=== PATIENT | female | born 1970 | race Caucasian/White ===

== ENCOUNTER 2017-01-02 20:15 | Emergency (ER) | payer OTHER ==
[~2017-01-02 20:15] MED LIST: ACET500T3 PO; DIPH1LIQ PO; DIPH25CA PO; EXCETAB40 PO; FLUT5SPR; GABA300C5 PO; HYDR50CA PO; ONETAB22 PO; PRIL20CA9 PO; RISP0.252 PO
[2017-01-02 20:17] VITALS: BP 116/75; PULSE 83; RESP 15; TEMP 98; O2SAT 98
--- NOTE | 2017-01-02 20:56 | PD ---
Physical Exam Time Seen by Provider: 20:54 Narrative 46 y/o female w/ hx of fibromyalgia here with R arm pain for 3 weeks. Specifically R elbow pain. Denies injury, feels that this is related to her fibromyalgia. vital signs reviewed. Seen at triage desk. Awaiting bed placement. Data Data Last Documented VS Vital Signs Date Time Temp Pulse Resp B/P Pulse Ox O2 Delivery O2 Flow Rate FiO2 01/02/17 20:17 98.0 83 15 116/75 98 Room Air [facility] Medical Record Reviewed: Yes Supervised Visit with SANTIAGO: Julio Dhaliwal January 02, 2017 20:56
[2017-01-02] MEDS ORDERED: MEDR4PAK PO (21:04)
--- NOTE | 2017-01-02 21:05 | PD ---
HPI Chief Complaint: Musculoskeletal Complaint Time Seen by Provider: 21:03 Travel History International Travel<30 days: No Contact w/Intl Traveler<30days: No Traveled to known affect area: No History of Present Illness HPI 46-year-old female with a history of fibromyalgia presents to the emergency department for evaluation of left forearm/elbow pain worsening over the last 2 weeks. Patient has a 6 out of 10, constant, exacerbated with supination of the right forearm. Patient recalls no injury. Denies and limitations in range of motion. Denies any recent illnesses, fever, chills. No alterations in sensation in the distal affected extremity. Patient has no other symptoms to report. PFSH Past Medical History Anxiety: Yes Depression: Yes Diminished Hearing: No Genitourinary: Yes (HX OF STD'S & endometriosis) Psychiatric: Yes (manic depression) Immunizations Current: Yes PNEUMOCCOCAL Vaccine (Year): 2008 : 2 Para: 1 Miscarriage: 1 Tubal Ligation: Yes Past Surgical History Gynecologic Surgery: Yes (tubal ligation ) Other Surgery: Yes (LUMP REMOVED FROM R BREAST-BENIGN) Social History Alcohol Use: No Tobacco Use: Yes (1 ppd) Substance Use: Yes (denies, hx crack) Allergies-Medications (Allergen,Severity, Reaction): Coded Allergies: Doxycycline (Verified Allergy, Severe, RASH, 01/02/17) Amoxicillin (Verified Allergy, Mild, ITCH, 01/02/17) Penicillin (Verified Allergy, Unknown, 01/02/17) Reported Meds & Prescriptions Reported Meds & Active Scripts Active Medrol Dosepak (Methylprednisolone) 4 Mg Dspk 4 Mg PO DIRECTED Per Pharmacist direction Prilosec (Omeprazole) 20 Mg Cap 40 Mg PO DAILY Reported Theraflu Expressmax (Mrzsvsspvvcrixm-Yxhnilbdrtnmb-Fzrbwqjifvumn) 12.5-5-325 mg/ 15 ml Liqd 30 Ml PO Q4H PRN One Daily-Minerals (Multiple Vitamins W/ Minerals) 1 Tab 1 Tab PO DAILY Acetaminophen 500 Mg Tab 500 Mg PO DIRECTED PRN Excedrin Tension Headache (Acetaminophen-Caffeine) 500-65 mg Tab 1 Tab PO Q6HR PRN Diphenhydramine (Diphenhydramine HCl) 25 Mg Cap 25 Mg PO HS PRN Gnp Fluticasone Propionat (Fluticasone Propionate (Nasal)) 50 Mcg/Act Spr Risperidone 0.25 Mg Tab 0.25 Mg PO Q12HR Hydroxyzine Pamoate 50 Mg Cap 50 Mg PO HS Gabapentin 300 Mg Cap 300 Mg PO BID Review of Systems Except as stated in HPI: all other systems reviewed are Neg Physical Exam Narrative GENERAL: Well-nourished, well-developed female patient in no acute distress SKIN: Focused skin assessment warm/dry. HEAD: Normocephalic. EYES: No scleral icterus. No injection or drainage. NECK: Supple, trachea midline. No JVD or lymphadenopathy. CARDIOVASCULAR: Regular rate and rhythm without murmurs, gallops, or rubs. RESPIRATORY: Breath sounds equal bilaterally. No accessory muscle use. MUSCULOSKELETAL: No cyanosis, or edema. No erythema or edema. Patient has full flexion and extension of the right elbow. There is tenderness elicited palpation over the posterior lateral forearm distal to the elbow. Distal pulses are palpable. Cap refill is within normal limits. BACK: Nontender without obvious deformity. No CVA tenderness. Data Data Last Documented VS Vital Signs Date Time Temp Pulse Resp B/P Pulse Ox O2 Delivery O2 Flow Rate FiO2 01/02/17 20:17 98.0 83 15 116/75 98 Room Air Orders ^ [place] Bandage (01/02/17 21:07) Ketorolac Inj (Toradol Inj) (01/02/17 21:15) MDM Medical Decision Making Medical Screen Exam Complete: Yes Emergency Medical Condition: Yes Medical Record Reviewed: Yes Differential Diagnosis Tendinitis versus bursitis versus osteoarthritis Narrative Course 46 year-old female presents to the emergency department for evaluation of right elbow pain. Patient has full range of motion. There is no erythema or edema. This is likely a tendinitis versus joint pain. Patient states she does have a remote history of crack cocaine use 8 years ago but adamantly denies any IV drug abuse. She is treated with anti-inflammatory medication and advised to follow-up with primary care provider. She agrees to return immediately with any acute worsening of symptoms. Diagnosis Primary Impression: Right elbow pain Referrals: Primary Care Physician Patient Instructions: Elbow Bursitis Exercises (GEN), General Instructions Additional Instructions: Ice and elevate to reduce pain Follow-up with the primary care provider Avoid repetitive movement to reduce pain Return immediately with any acute worsening of symptoms Med/Other Pt SpecificInfo: Prescription(s) given Scripts Methylprednisolone Dosepak (Medrol Dosepak)4 Mg Dspk4 Mg PO DIRECTED #1 DSPK Ref 0 Per Pharmacist direction Prov:Meche Buchanan 01/02/17 Disposition: 01 DISCHARGE HOME Condition: Stable Meche Buchanan January 02, 2017 21:04
[2017-01-02] MEDS ORDERED: KETOROLAC TROMETHAMINE 60 MG/2 ML (IM) VIAL IM ONE (21:15)
[2017-01-16] MEDS ORDERED: AZIT250T3 PO (08:50)
[2017-01-16] MEDS ORDERED: BENZ100 PO (08:50)
[2017-01-31] MEDS ORDERED: OMEP20TA PO (08:37)
[2017-01-31] MEDS ORDERED: GABA100C4 PO (08:37)
[2017-01-31] MEDS ORDERED: FLUT50SP EACH NARE (08:37)
[2017-01-31] MEDS ORDERED: EXCETAB30 PO (08:37)
[2017-01-31] MEDS ORDERED: ACET500T13 PO (08:37)
== END 2017-01-02 21:48 | disposition home or self-care (01) ==
LOC: NEPK 20:15
DX: M25.521 Pain in right elbow (principal); M79.7 Fibromyalgia
CPT/HCPCS: 96372; 99283; J1885

== ENCOUNTER 2017-03-27 07:05 | Emergency (ER) | payer OTHER ==
[~2017-03-27] VITALS: Ht 160 cm; Wt 58.0 kg
[~2017-03-27 07:05] MED LIST changes: +ACET500T13 PO; -ACET500T3 PO; +BENZ100 PO; -DIPH1LIQ PO; +EXCETAB30 PO; -EXCETAB40 PO; +FLUT50SP EACH NARE; -FLUT5SPR; +GABA100C4 PO; -GABA300C5 PO; +OMEP20TA PO; -PRIL20CA9 PO
[2017-03-27 07:08] VITALS: BP 130/80; PULSE 68; RESP 20; TEMP 97.7; O2SAT 20
[2017-03-27] MEDS ORDERED: PRED20 PO (08:13)
--- NOTE | 2017-03-27 08:13 | PD ---
HPI Chief Complaint: Skin Problem Time Seen by Provider: 07:40 Travel History International Travel<30 days: No Contact w/Intl Traveler<30days: No Traveled to known affect area: No History of Present Illness HPI 38-year-old female since emergency department for evaluation of rash to bilateral upper extremities extending from the hands up into the elbows. 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 She believes this may have caused the rash. The rash is pruritic. She denies fever or chills. PFSH Past Medical History Anxiety: Yes Depression: Yes Diminished Hearing: No Genitourinary: Yes (HX OF STD'S & endometriosis) Psychiatric: Yes (manic depression) Immunizations Current: Yes PNEUMOCCOCAL Vaccine (Year): 2008 ?: Not : 2 Para: 1 Miscarriage: 1 Tubal Ligation: Yes Past Surgical History Gynecologic Surgery: Yes (tubal ligation ) Other Surgery: Yes (LUMP REMOVED FROM R BREAST-BENIGN) Social History Alcohol Use: No Tobacco Use: Yes (1 ppd) Substance Use: Yes (denies, hx crack) Allergies-Medications (Allergen,Severity, Reaction): Coded Allergies: Doxycycline (Verified Allergy, Severe, RASH, 03/27/17) Amoxicillin (Verified Allergy, Mild, ITCH, 03/27/17) Penicillin (Verified Allergy, Unknown, 03/27/17) Reported Meds & Prescriptions Reported Meds & Active Scripts Active Prednisone 20 Mg Tab 40 Mg PO DAILY Take 40 mg (2 tablets) daily for 5 days Omeprazole 20 Mg Tab 20 Mg PO DAILY Tessalon Perles (Benzonatate) 100 Mg Cap 200 Mg PO TID PRN Reported Excedrin Migraine Caplet (Aspirin/Acetaminophen/Caffeine) 1 Each Tablet 650 Mg PO DAILY Fluticasone Nasal [place] 50 Mcg/Act Naspr 50 Mcg EACH NARE BID 50 mcg/spray APAP Extra Strength (Acetaminophen) 500 Mg Tab 500 Mg PO Q4-6H PRN Gabapentin 100 Mg Cap 300 Mg PO BID One Daily-Minerals (Multiple Vitamins W/ Minerals) 1 Tab 1 Tab PO DAILY Diphenhydramine (Diphenhydramine HCl) 25 Mg Cap 25 Mg PO HS PRN Risperidone 0.25 Mg Tab 0.25 Mg PO Q12HR Hydroxyzine Pamoate 50 Mg Cap 50 Mg PO HS Review of Systems Except as stated in HPI: all other systems reviewed are Neg General / Constitutional: No: Fever Physical Exam Narrative GENERAL: Well-nourished, well-developed patient. SKIN: Focused skin assessment warm/dry. Diffuse pruritic papules on erythematous base extending from the hands of the elbows. There is no induration, fluctuance, lymphangitis. HEAD: Normocephalic. EYES: No scleral icterus. No injection or drainage. NECK: Supple, trachea midline. No JVD or lymphadenopathy. CARDIOVASCULAR: Regular rate and rhythm without murmurs, gallops, or rubs. RESPIRATORY: Breath sounds equal bilaterally. No accessory muscle use. GASTROINTESTINAL: Abdomen soft, non-tender, nondistended. MUSCULOSKELETAL: No cyanosis, or edema. Bilateral upper extremities: Diffuse pruritic papules on erythematous base extending from the hands of the elbows. There is no induration, fluctuance, lymphangitis. BACK: Nontender without obvious deformity. No CVA tenderness. Data Data Last Documented VS Vital Signs Date Time Temp Pulse Resp B/P Pulse Ox O2 Delivery O2 Flow Rate FiO2 03/27/17 07:08 97.7 68 20 130/80 20 Room Air MDM Medical Decision Making Medical Screen Exam Complete: Yes Emergency Medical Condition: Yes Differential Diagnosis Irritant Contact dermatitis, allergic contact dermatitis, other Narrative Course 38-year-old female since emergency department for evaluation of rash to bilateral upper extremities extending from the hands up into the elbows. 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 She believes this may have caused the rash. The rash is pruritic. She denies fever or chills. Physical exam is consistent with contact dermatitis. Patient was instructed to avoid having contact with the bleach water. She will be given a prescription for prednisone and instructed take [id number] Benadryl. She agrees to plan. Diagnosis Primary Impression: Contact dermatitis Qualified Code: L25.9 - Contact dermatitis, unspecified contact dermatitis type, unspecified trigger Referrals: [facility] Additional Instructions: Avoid contact with the bleach. Take [id number] Benadryl 25 mg every 6-8 hours as needed for itching. Take the steroids as prescribed. Return if. Worsening symptoms. Scripts Prednisone 20 Mg Tab40 Mg PO DAILY #10 TAB Take 40 mg (2 tablets) daily for 5 days Prov:Alison Caba 03/27/17 Disposition: 01 DISCHARGE HOME Condition: Stable Alison Caba Mar 27, 2017 08:13
== END 2017-03-27 08:40 | disposition home or self-care (01) ==
LOC: NEPK 07:05
DX: L25.9 Unspecified contact dermatitis, unspecified cause (principal); F41.9 Anxiety disorder, unspecified; F32.9 Major depressive disorder, single episode, unspecified; F17.200 Nicotine dependence, unspecified, uncomplicated; Z88.0 Allergy status to penicillin; Z88.8 Allergy status to other drugs, medicaments and biological substances; Z79.899 Other long term (current) drug therapy
CPT/HCPCS: 99283

== ENCOUNTER 2017-04-02 10:48 | Emergency (ER) | payer OTHER ==
[~2017-04-02] VITALS: Ht 160 cm; Wt 57.5 kg
[~2017-04-02 10:48] MED LIST changes: +PRED20 PO
[2017-04-02 10:50] VITALS: BP 125/92; PULSE 80; RESP 16; TEMP 98.3; O2SAT 98
[2017-04-02] MEDS ORDERED: predniSONE 20 MG TAB PO ONE (11:30)
[2017-04-02] MEDS ORDERED: VIST25CA PO (11:32)
[2017-04-02] MEDS ORDERED: PRED20 PO (11:32)
[2017-04-02] MEDS ORDERED: TRIAM.1%T TOPICAL (11:32)
--- NOTE | 2017-04-02 11:37 | PD ---
HPI Chief Complaint: Skin Problem Time Seen by Provider: 11:15 Travel History International Travel<30 days: No Contact w/Intl Traveler<30days: No Traveled to known affect area: No History of Present Illness HPI 26-year-old female presents the emergency department with ongoing bilateral rash, pruritus, to both forearms and hands for the past 2 weeks. Patient was exposed to a new detergent at her work which she feels started the problem. She was seen and treated with prednisone 20 mg twice a day 5 days she states gave minimal improvement. He states the itching is driving her crazy. She denies fever, chills, or other symptoms. She is allergic to amoxicillin, doxycycline, and penicillin. PFSH Past Medical History Anxiety: Yes Depression: Yes Diminished Hearing: No Genitourinary: Yes (HX OF STD'S & endometriosis) Psychiatric: Yes (manic depression) Immunizations Current: Yes PNEUMOCCOCAL Vaccine (Year): 2008 : 2 Para: 1 Miscarriage: 1 Tubal Ligation: Yes Past Surgical History Gynecologic Surgery: Yes (tubal ligation ) Other Surgery: Yes (LUMP REMOVED FROM R BREAST-BENIGN) Social History Alcohol Use: No Tobacco Use: Yes (1 ppd) Substance Use: Yes (denies, hx crack) Allergies-Medications (Allergen,Severity, Reaction): Coded Allergies: Doxycycline (Verified Allergy, Severe, RASH, 04/02/17) Amoxicillin (Verified Allergy, Mild, ITCH, 04/02/17) Penicillin (Verified Allergy, Unknown, 04/02/17) Reported Meds & Prescriptions Reported Meds & Active Scripts Active Vistaril (Hydroxyzine Pamoate) 25 Mg Cap 25 Mg PO Q6H PRN Prednisone 20 Mg Tab 20 Mg PO BID Triamcinolone Topical (Triamcinolone Acetonide) 0.1 % Oint 1 Applic TOPICAL QID Omeprazole 20 Mg Tab 20 Mg PO DAILY Tessalon Perles (Benzonatate) 100 Mg Cap 200 Mg PO TID PRN Reported Excedrin Migraine Caplet (Aspirin/Acetaminophen/Caffeine) 1 Each Tablet 650 Mg PO DAILY Fluticasone Nasal [place] 50 Mcg/Act Naspr 50 Mcg EACH NARE BID 50 mcg/spray APAP Extra Strength (Acetaminophen) 500 Mg Tab 500 Mg PO Q4-6H PRN Gabapentin 100 Mg Cap 300 Mg PO BID One Daily-Minerals (Multiple Vitamins W/ Minerals) 1 Tab 1 Tab PO DAILY Diphenhydramine (Diphenhydramine HCl) 25 Mg Cap 25 Mg PO HS PRN Risperidone 0.25 Mg Tab 0.25 Mg PO Q12HR Hydroxyzine Pamoate 50 Mg Cap 50 Mg PO HS Review of Systems General / Constitutional: No: Fever Eyes: No: Visual changes HENT: No: Headaches Cardiovascular: No: Chest Pain or Discomfort Respiratory: No: Shortness of Breath Gastrointestinal: No: Abdominal Pain Genitourinary: No: Dysuria Musculoskeletal: No: Pain Skin: Positive Rash, Positive Itching, Positive Dryness Neurologic: No: Weakness Psychiatric: No: Depression Endocrine: No: Polydipsia Hematologic/Lymphatic: No: Easy Bruising Physical Exam Narrative GENERAL: Patient is in mild to moderate distress. SKIN: Warm and dry. Normal color. Normal turgor. Patient is a dry, erythematous, sandpaperlike raised rash to both forearms and hands consistent with contact dermatitis/eczema. HEAD: Atraumatic. Normocephalic. EYES: Pupils equal and round. No scleral icterus. No injection or drainage. ENT: No nasal bleeding or discharge. Mucous membranes pink and moist. Pharynx is clear. Airway is patent. NECK: Trachea midline. Supple nontender. CARDIOVASCULAR: Regular rate and rhythm. RESPIRATORY: No accessory muscle use. Clear to auscultation. Breath sounds equal bilaterally. MUSCULOSKELETAL: Extremities without clubbing, cyanosis, or edema. No obvious deformities. NEUROLOGICAL: Awake and alert. No obvious cranial nerve deficits. Motor grossly within normal limits. Five out of 5 muscle strength in the arms and legs. Normal speech. PSYCHIATRIC: Appropriate mood and affect; insight and judgment normal. Data Data Last Documented VS Vital Signs Date Time Temp Pulse Resp B/P Pulse Ox O2 Delivery O2 Flow Rate FiO2 04/02/17 10:50 98.3 80 16 125/92 98 Room Air Orders Hydroxyzine Pamoate (Vistaril) (04/02/17 11:30) Prednisone (Deltasone) (04/02/17 11:30) [facility] Medical Decision Making Medical Screen Exam Complete: Yes Emergency Medical Condition: Yes Medical Record Reviewed: Yes Differential Diagnosis Pruritus. Contact dermatitis. Eczema. Narrative Course Patient is given Vistaril 50 mg by mouth 1. Patient will be treated with triamcinolone 1% ointment to be applied to both forearms and hands 4 times a day for the next 7 days. She is dispensed 30 g with 1 refill. Patient is also put on prednisone 20 mg is twice a day 7 days. Patient is also given a prescription for Vistaril 25 mg every 6 hours when necessary itching #60. Patient is to use petroleum jelly over the triamcinolone ointment. Patient is to avoid over washing the arms as this will aggravate it. Patient follow with primary care physician as needed. Diagnosis Primary Impression: Contact dermatitis Qualified Code: L24.0 - Irritant contact dermatitis due to detergent Referrals: [facility] Patient Instructions: Contact Dermatitis (ED), General Instructions Additional Instructions: Patient is given Vistaril 50 mg by mouth 1. Patient will be treated with triamcinolone 1% ointment to be applied to both forearms and hands 4 times a day for the next 7 days. She is dispensed 30 g with 1 refill. Patient is also put on prednisone 20 mg is twice a day 7 days. Patient is also given a prescription for Vistaril 25 mg every 6 hours when necessary itching #60. Patient is to use petroleum jelly over the triamcinolone ointment. Patient is to avoid over washing the arms as this will aggravate it. Patient follow with primary care physician as needed. Med/Other Pt SpecificInfo: Prescription(s) given Scripts Hydroxyzine Pamoate (Vistaril)25 Mg Cap25 Mg PO Q6H PRN (ITCHING) #28 CAP Ref 0 Prov:Dayna Garcia MD 04/02/17 Prednisone 20 Mg Tab20 Mg PO BID #14 TAB Prov:Dayna Garcia MD 04/02/17 Triamcinolone Topical 0.1 % Oint1 Applic TOPICAL QID #30 GM Ref 1 Prov:Dayna Garcia MD 04/02/17 Disposition: 01 DISCHARGE HOME Condition: Stable Trevor Mccain Apr 02, 2017 11:37
== END 2017-04-02 13:02 | disposition home or self-care (01) ==
LOC: NEPK 10:48
DX: L24.0 Irritant contact dermatitis due to detergents (principal)
CPT/HCPCS: 99284; J7512

== ENCOUNTER 2017-04-17 07:49 | Emergency (ER) | payer SELFPAY ==
[~2017-04-17] VITALS: Ht 160 cm; Wt 60.0 kg
[~2017-04-17 07:49] MED LIST changes: +TRIAM.1%T TOPICAL; +VIST25CA PO
[2017-04-17 07:50] VITALS: BP 131/88; PULSE 77; RESP 16; TEMP 98.4; O2SAT 98
--- NOTE | 2017-04-17 09:03 | PD ---
HPI Chief Complaint: Child Adolescent Care Problem/Complaint Time Seen by Provider: 08:54 Travel History International Travel<30 days: No Contact w/Intl Traveler<30days: No Traveled to known affect area: No History of Present Illness HPI 46-year-old female with history of no significant past medical issues, presents to the ER today because of a right labia majora lesion that she has noticed over the last few days. She states that she had a new sexual partner a few weeks ago. She states that she has been feeling tired recently and has noticed a abnormal vaginal discharge, has had some tingling on the top of her tongue. She denies any fevers, vomiting, abdominal pain, or other symptoms. Modifying Factors: None Associated Signs & Symptoms: Labia majora lesion, discharge, feeling more tired than usual Risk Factors: None PFSH Past Medical History Anxiety: Yes Depression: Yes Diminished Hearing: No Genitourinary: Yes (HX OF STD'S & endometriosis) Psychiatric: Yes (manic depression) Immunizations Current: Yes PNEUMOCCOCAL Vaccine (Year): 2008 ?: Not LMP: MENOPAUSAL : 2 Para: 1 Miscarriage: 1 Tubal Ligation: Yes Past Surgical History Gynecologic Surgery: Yes (tubal ligation ) Other Surgery: Yes (LUMP REMOVED FROM R BREAST-BENIGN) Social History Alcohol Use: No Tobacco Use: Yes (1 09/03 ppd) Substance Use: No (denies, hx crack--PT STATES CLEAN X 6 YRS) Allergies-Medications (Allergen,Severity, Reaction): Coded Allergies: doxycycline (Unverified Allergy, Severe, RASH, 04/17/17) amoxicillin (Unverified Allergy, Mild, ITCH, 04/17/17) penicillin G (Unverified Allergy, Unknown, 04/17/17) Reported Meds & Prescriptions Reported Meds & Active Scripts Active Vistaril (Hydroxyzine Pamoate) 25 Mg Cap 25 Mg PO Q6H PRN Prednisone 20 Mg Tab 20 Mg PO BID Triamcinolone Topical (Triamcinolone Acetonide) 0.1 % Oint 1 Applic TOPICAL QID Omeprazole 20 Mg Tab 20 Mg PO DAILY Reported Excedrin Migraine Caplet (Aspirin/Acetaminophen/Caffeine) 1 Each Tablet 650 Mg PO DAILY Fluticasone Nasal [place] 50 Mcg/Act Naspr 50 Mcg EACH NARE BID 50 mcg/spray APAP Extra Strength (Acetaminophen) 500 Mg Tab 500 Mg PO Q4-6H PRN Gabapentin 100 Mg Cap 300 Mg PO BID One Daily-Minerals (Multiple Vitamins W/ Minerals) 1 Tab 1 Tab PO DAILY Diphenhydramine (Diphenhydramine HCl) 25 Mg Cap 25 Mg PO HS PRN Risperidone 0.25 Mg Tab 0.25 Mg PO Q12HR Hydroxyzine Pamoate 50 Mg Cap 50 Mg PO HS Review of Systems Except as stated in HPI: all other systems reviewed are Neg Physical Exam Narrative GENERAL: Well-developed middle age white female patient currently in mild distress. Awake and oriented 3. SKIN: Focused skin assessment warm/dry. HEAD: Atraumatic. Normocephalic. EYES: Pupils equal and round. No scleral icterus. No injection or drainage. ENT: Mucosa pink and moist. No erythema or exudates. No uvular edema. No uvular , palatal, or tonsillar deviation. Airway patent. NECK: Trachea midline. No JVD. CARDIOVASCULAR: Regular rate and rhythm. No murmur appreciated. RESPIRATORY: No accessory muscle use. Clear to auscultation. Breath sounds equal bilaterally. GASTROINTESTINAL: Abdomen soft, non-tender, nondistended. Hepatic and splenic margins not palpable. GENITOURINARY: Normal external genitalia with a small lesion on the right labia which appears to be a clean-based ulcer with no surrounding drainage or erythema. Vaginal vault without blood or drainage. Cervical os was closed with small amount a whitish drainage. No cervical motion tenderness. Uterus nontender and nonenlarged. Bilateral adnexa nontender without masses. MUSCULOSKELETAL: No obvious deformities. No clubbing. No cyanosis. No edema. NEUROLOGICAL: Awake and alert. No obvious cranial nerve deficits. Motor grossly within normal limits. Normal speech. PSYCHIATRIC: Appropriate mood and affect; insight and judgment normal. Data Data Last Documented VS Vital Signs Date Time Temp Pulse Resp B/P Pulse Ox O2 Delivery O2 Flow Rate FiO2 04/17/17 07:50 98.4 77 16 131/88 98 Room Air Orders Gc And Chlamydia Pcr (04/17/17 08:54) Wet Prep Profile (04/17/17 08:54) Ua Includes Microscopic (04/17/17 08:54) Azithromycin Powd Pack (Zithromax Powd P (04/17/17 09:30) Ceftriaxone Inj (Rocephin Inj) (04/17/17 09:30) Lidocaine 1% Inj (50 Ml) (Xylocaine 1% I (04/17/17 09:30) Metronidazole (Flagyl) (04/17/17 09:30) Herpes Simplex Virus Culture (04/17/17 09:25) MDM Medical Decision Making Medical Screen Exam Complete: Yes Emergency Medical Condition: Yes Medical Record Reviewed: Yes Differential Diagnosis Vaginal discharge, genital lesionvaginitis versus cervicitis versus herpetic lesion versus folliculitis Narrative Course The ulcerated area on the labia majora is concerning for a herpetic lesion. My plan would be to treat her for possible herpes. Culture was done. In addition , my plan would also be to empirically treat her for other STDs considering her history. She should return for any worsening in pain, symptoms, and as needed. Cultures have been done and are pending. The plan was discussed with the patient and she states understanding. Diagnosis Primary Impression: Vaginal discharge Additional Impression: Genital lesion, female Med/Other Pt SpecificInfo: Prescription(s) given Scripts Acyclovir 400 Mg [id number] Mg PO TID 7 Days Ref 0 Prov:Guy Foster MD 04/17/17 Disposition: 01 DISCHARGE HOME Condition: Stable Guy Foster MD Apr 17, 2017 09:03
[2017-04-17] MEDS ORDERED: LIDOCAINE HCL 1% 50 ML VIAL IM ONE (09:30)
[2017-04-17] MEDS ORDERED: AZITHROMYCIN PWD FOR SUSP 1 GM PACKET PO ONE (09:30)
[2017-04-17] MEDS ORDERED: cefTRIAXone 250 MG VIAL IM ONE (09:30)
[2017-04-17] MEDS ORDERED: metroNIDAZOLE 500 MG TAB PO ONE (09:30)
[2017-04-17] MEDS ORDERED: ACYC400T PO (09:32)
[2017-04-17 10:13] LABS: BLOOD, URINE NEG (NEG); GLUCOSE,URINE NEG (NEG); KETONE, URINE NEG (NEG); NITRITE,URINE NEG (NEG); SQUAMOUS EPITHELIAL CELL URINE 1 /hpf (0-5); URINE COLOR YELLOW (YELLW/STRAW)
[2017-04-17 12:22] LABS: CHLAMYDIA PCR NOT DETECTED (NOT DETECT); NEISSERIA PCR NOT DETECTED (NOT DETECT)
== END 2017-04-17 10:34 | disposition home or self-care (01) ==
LOC: NEPE 07:49
DX: N89.8 Other specified noninflammatory disorders of vagina (principal)
CPT/HCPCS: 81001; 87210; 87255; 87491; 87591; 96372; 99284; J0696